=== PATIENT | female | born 1975 | race Caucasian/White ===

== ENCOUNTER 2016-07-18 10:07 | Emergency (ER) | payer OTHER ==
[~2016-07-18] VITALS: Ht 160 cm; Wt 63.5 kg
--- NOTE | 2016-07-18 10:17 | ED MVC/FALL/TRAUMA COMPLAINT ---
History of Present Illness General Chief Complaint: General Adult Stated Complaint: MULIT COMPLAINTS Source: patient Exam Limitations: no limitations Vital Signs & Intake/Output Vital Signs & Intake/Output Vital Signs Date Time Temp Pulse Resp B/P Pulse O2 O2 Flow FiO2 Ox Delivery Rate 07/18 1113 97.8 76 18 118/76 100 Room Air 07/18 1019 99.1 90 20 106/68 97 Room Air Allergies Coded Allergies: NO KNOWN ALLERGIES (05/14/12) Reconcile Medications Metronidazole (Flagyl) 500 MG TABLET 1 TAB PO TID ANTIBIOTIC, INFECTION ( Reported) Triage Nurses Notes Reviewed? yes HPI: 40 yo previously healthy F presenting with chest pain, URI Sx, Vaginal Sx. Chest pain starting yesterday afternoon, pressure-like sensation, worse in the substernal area radiating to the bilateral upper left and right chest, constant, nonpleuritic, nonexertional. Associated URI symptoms, with cough, congestion, rhinorrhea, mild sore throat for the last 2-3 days. Patient also endorses a vaginal symptoms with change in odor and vaginal itching for the last 3-4 days, evaluated at [facility] for the same yesterday, testing for chlamydia and gonorrhea sent, treated for bacterial vaginosis with Flagyl, patient has not taken first dose yet. Patient presents to ED today because she is concerned about lab values done yesterday [facility], "my CO2 was low, my globulin was high, I need to get treatment for this illness." D/C paperwork shows CO2 20 (normal 22-30), globulun 3.6 (normal 2.5-3.5), UA suggestive of infection. Denies fevers, chills, dictations, shortness of breath, abdominal pain, nausea, vomiting, diarrhea, headaches, dizziness, or focal neurologic symptoms. (ELODIA DUNN,NARDA) Past History Travel History Traveled to [place] past 21 day No Medical History Any Pertinent Medical History? see below for history Surgical History Surgical History: none Psychosocial History What is your primary language Slovak Family History Hx Contributory? No (ELODIA DUNN,NARDA) Review of Systems Review of Systems Constitutional: Reports: no symptoms. Eyes: Reports: no symptoms. Ears, Nose, Throat, Mouth: Reports: other (Congestion, Rhinorrhea). Respiratory: Reports: cough. Denies: orthopnea, short of breath, sputum production. Cardiovascular: Reports: chest pain. Denies: palpitations, peripheral edema, syncope. Gastrointestinal/Abdominal: Reports: no symptoms. Genitourinary: Reports: no symptoms. Musculoskeletal: Reports: no symptoms. Skin: Reports: no symptoms. Neurological/Psychological: Reports: no symptoms. All Other Systems: Reviewed and Negative (ELODIA DUNN,NARDA) Physical Exam Physical Exam General Appearance: well developed/nourished, no apparent distress Head: atraumatic Eyes: Bilateral: normal appearance. Ears, Nose, Throat, Mouth: moist mucous membrane, Tympanic normal Neck: normal inspection Respiratory: normal breath sounds Cardiovascular: regular rate/rhythm, normal peripheral pulses Gastrointestinal: normal bowel sounds, soft, non-tender Back: normal inspection Extremities: normal range of motion Comments: HEENT: No pharyngeal erythema or exudates, TMs normal bilaterally without injection or effusion Pulmonary: Lungs clear to auscultation bilaterally, without appreciable wheezes, rales, rhonchi. Core Measures ACS in differential dx? Yes Severe Sepsis Present: No Septic Shock Present: No (ELODIA DUNN,NARDA) Progress Differential Diagnosis: viral URI, bronchitis, pneumonia, low concern for ACS or PE Plan of Care: Orders Procedure Date/time Status EKG 07/18 1112 Active Laboratory Tests 07/18/16 1108: Troponin I Cancelled, CBC w Diff Cancelled, WBC Cancelled, RBC Cancelled, Hgb Cancelled, Hct Cancelled, MCV Cancelled, MCH Cancelled, RDW Cancelled, Plt Count Cancelled, MPV Cancelled, PUBS MCHC Cancelled Physician MDM: 40 yo previously healthy F presenting with chest pain, URI Sx, Vaginal Sx, concerns about mildly abnormal labs performed at [facility] yesterday. VSS, physical exam as above. DDx: Viral URI, bronchitis, pneumonia, low concern for ACS or PE. Patient declines lab work including troponin, stating she had lab work yesterday and does not want to be stuck again, patient is aware that this will limit our evaluation for cardiac disease and continues to decline lab work. EKG sinus rhythm, T-wave inversion in V1, unchanged from previous, nonischemic. Chest x-ray without focal consolidation airspace disease. Vaginal symptoms discussed with patient, has perscription for Flagyl she has not started taking, instructed to start taking antibiotic, instructed to follow-up on Chlamydia and gonorrhea testing sent yesterday from [facility] with her primary care doctor or [employer]. Patient offered empiric treatment for chlamydia and gonorrhea, declined. Lab values from yesterday's evaluation discussed the patient, reassured that they are nonspecific, should not be concerning, and no treatment is required. Given nonischemic EKG overall low concern for ACS based on symptoms patient discharged with return precautions , plan to follow up with PMD in the next 2-3 days. (ELODIA DUNN,NARDA) Departure Departure Disposition: HOME OR SELF CARE Condition: Stable Clinical Impression Primary Impression: URI (upper respiratory infection) Secondary Impressions: Vaginal itching Referrals: PATIENT HAS NO PRIMARY CARE DR (PCP/Family) Departure Forms: Customer Survey General Discharge Information (ELODIA DUNN,NARDA) PA/STITCH BURNISHER Co-Sign Statement Statement: ED Attending supervision documentation- [] I saw and evaluated the patient. I have also reviewed all the pertinent lab results and diagnostic results. I agree with the findings and the plan of care as documented in the PA's/STITCH BURNISHER's documentation. [X] I have reviewed the ED Record and agree with the PA's/STITCH BURNISHER's documentation. [] Additions or exceptions (if any) to the PAs/STITCH BURNISHER's note and plan are summarized below: [] (CAITY DUNN,AGUSTIN Wu)
[2016-07-18] MEDS ORDERED: FLAGYL500 MG PO (10:56)
[2016-07-18 11:13] VITALS: BP 118/76
--- NOTE | 2016-07-18 12:26 | RADIOLOGY REPORT ---
EXAMINATION: XR CHEST CLINICAL INFORMATION: Chest pressure. Presumptive diagnosis of pneumonia. COMPARISON: None TECHNIQUE: 2 views of the chest were obtained. FINDINGS: The cardiomediastinal silhouette is within normal limits in size. Lungs bilaterally are symmetrically expanded and clear. No effusion or pneumothorax is seen. Mild S-shaped thoracic scoliosis is seen. IMPRESSION: Unremarkable examination with no evidence of focal pneumonia.
== END 2016-07-18 13:13 ==
LOC: ERH 10:07
DX: J06.9 Acute upper respiratory infection, unspecified (principal); L29.2 Pruritus vulvae
CPT/HCPCS: 93005; 93010

== ENCOUNTER 2016-07-18 21:14 | Emergency (ER) | payer OTHER ==
[~2016-07-18] VITALS: Ht 160 cm; Wt 63.5 kg
[~2016-07-18 21:14] MED LIST: FLAGYL500 MG PO
--- NOTE | 2016-07-18 21:19 | ED GI/GU/ABDOMINAL COMPLAINT ---
History of Present Illness General Chief Complaint: Female Urogenital Problems Stated Complaint: " WANT AN STD SHOT THAT I TURNED DOWN EARLIER" Source: patient Exam Limitations: no limitations Vital Signs & Intake/Output Vital Signs & Intake/Output Vital Signs Date Time Temp Pulse Resp B/P Pulse O2 O2 Flow FiO2 Ox Delivery Rate 07/19 2131 99.2 74 18 119/80 98 Room Air ED Intake and Output 07/19 0000 07/18 1200 Intake Total 60 Output Total Balance 60 Intake, Oral 60 Patient 140 lb Weight Allergies Coded Allergies: NO KNOWN ALLERGIES (05/14/12) Reconcile Medications Metronidazole (Flagyl) 500 MG TABLET 1 TAB PO TID ANTIBIOTIC, INFECTION ( Reported) Triage Nurses Notes Reviewed? yes ? N Is pt currently ? No HPI: 40 yo previosuly healthy female presenting with vaginal itching and change in odor. Change in vaginal odor for the past 3-4 days associated itching and mild whitish discharge, evaluated for the same yesterday at emergency Department, diagnosed with bacterial vaginosis, discharged with Flagyl which she has not started taking, cultures for chlamydia and gonorrhea sent but emperic treatment held. Patient hydrated for URI symptoms as well as vaginal symptoms earlier in this emergency department offered empiric treatment for chylamydia/gonorrhea given ongoing concern for vaginal infection, declined due to fears about ceftriaxone shot. Patient returned to the ED this evening because she has ongoing concern for untreated infection, now would like IM ceftriaxone and azithromycin. Denies new, worsening, or concerning symptoms from ED visit this afternoon. (NARDA CLIFTON MD) Past History Travel History Traveled to [place] past 21 day No Medical History Any Pertinent Medical History? none Surgical History Surgical History: none Psychosocial History What is your primary language Cuban Family History Hx Contributory? No (NARDA CLIFTON MD) Review of Systems Review of Systems Constitutional: Reports: no symptoms. EENTM: Reports: no symptoms. Respiratory: Reports: cough. Denies: short of breath, wheezing. Cardiovascular: Reports: no symptoms. GI: Denies: abdominal pain, constipation, diarrhea, nausea, vomiting. Musculoskeletal: Reports: no symptoms. Skin: Reports: no symptoms. Neurological/Psychological: Reports: no symptoms. Hematologic/Endocrine: Reports: no symptoms. Immunologic/Allergic: Reports: no symptoms. All Other Systems: Reviewed and Negative (NARDA CLIFTON MD) Physical Exam Physical Exam General Appearance: well developed/nourished, no apparent distress, alert, awake Head: atraumatic, normal appearance Eyes: Bilateral: normal appearance. Ears, Nose, Throat, Mouth: hearing grossly normal Neck: normal inspection, supple, full range of motion Respiratory: normal breath sounds, no respiratory distress Cardiovascular: regular rate/rhythm, normal peripheral pulses Gastrointestinal: normal bowel sounds, soft, non-tender Core Measures ACS in differential dx? No Severe Sepsis Present: No Septic Shock Present: No (NARDA CLIFTON MD) Progress Differential Diagnosis: Bacterial vaginosis, Trichomonas, Chlamydia, gonorrhea Plan of Care: Current Medications Sig/Darrell Start time Last Medication Dose Stop Time Status Admin Azithromycin 1,000 MG ONCE ONE 07/18 2129 AC (Zithromax) 07/18 2130 Ceftriaxone Sodium 250 MG ONCE ONE 07/18 2129 AC (Rocephin) 07/18 2130 Physician MDM: 40 yo F presents requesting emperic treatment for GCC, which she declined earlier in the day, also examined by provider at that time. VSS, abdominal exam remains benign. Given patient extremely concerned for untreated vaginal infection, will treat empirically for chlamydia and gonorrhea at this time with IM ceftriaxone and 1 g of azithromycin. Plan to continue Flagyl prescribed at [facility] yesterday. Patient counseled to avoid sexual intercourse until sexual partners are treated. Discharged with return precautions plan to follow up with outpatient primary care provider. (NARDA CLIFTON MD) Initial ED EKG: none (NARDA CLIFTON MD) Departure Departure Disposition: HOME OR SELF CARE Condition: Stable Clinical Impression Primary Impression: Vaginal itching Referrals: [facility] Additional Instructions: Avoid sexual intercourse with your previous partners until they are also treated for chlamydia and gonorrhea. Follow up with your OBGYN in the next 2-3 days. Return to the ED for any new, worsening, or concerning symptoms. Departure Forms: Customer Survey General Discharge Information (NARDA CLIFTON MD) PA/PICKER Co-Sign Statement Statement: ED Attending supervision documentation- [] I saw and evaluated the patient. I have also reviewed all the pertinent lab results and diagnostic results. I agree with the findings and the plan of care as documented in the PA's/PICKER's documentation. [X] I have reviewed the ED Record and agree with the PA's/PICKER's documentation. [] Additions or exceptions (if any) to the PAs/PICKER's note and plan are summarized below: [] (BRANDON DUNN,YEISON)
[2016-07-18 21:32] VITALS: BP 119/80
== END 2016-07-18 21:53 ==
LOC: ERH 21:14
DX: L29.9 Pruritus, unspecified (principal)
CPT/HCPCS: 96372; J0696

== ENCOUNTER 2016-07-20 20:40 | Emergency (ER) | payer OTHER ==
[~2016-07-20] VITALS: Ht 160 cm; Wt 65.8 kg
[2016-07-20 21:06] VITALS: BP 123/78
--- NOTE | 2016-07-20 22:03 | ED GENERAL ADULT ---
History of Present Illness General Chief Complaint: General Adult Stated Complaint: "MY PILLS DONT TASTE GOOD" Source: patient, old records Exam Limitations: no limitations Vital Signs & Intake/Output Vital Signs & Intake/Output Vital Signs Date Time Temp Pulse Resp B/P Pulse O2 O2 Flow FiO2 Ox Delivery Rate 07/20 2106 98.7 82 18 123/78 100 Room Air Allergies Coded Allergies: NO KNOWN ALLERGIES (05/14/12) Reconcile Medications Metronidazole (Flagyl) 500 MG TABLET 1 TAB PO TID ANTIBIOTIC, INFECTION ( Reported) Triage Note: PT TO ED C/O "MY MEDICINE DOES NOT TASTE GOOD, I CAN'T TOLERATE IT" TOOK 1 PILL OF GENERIC FLAGYL YESTERDAY FOR BACTERIAL VAGINOSIS. "THEY GAVE ME THE NAME BRAND HERE AND IT WAS OK, I JUST CAN'T TAKE THIS" Triage Nurses Notes Reviewed? yes : No Patient currently breastfeeds: No HPI: Patient was seen at [place] emergency department a few days ago and was diagnosed with bacterial vaginosis. Patient was given a prescription for Flagyl however she did not fill it and came here for another evaluation. Patient was seen here on Wednesday and was instructed to take the prescription as it was prescribed. Patient was given a Flagyl pill while here in the emergency room. Patient states that she took the pill without any difficulty however when she got the prescription filled it was for the generic and the pills are very nasty taste in the patient states that she cannot take them. Patient denies any fevers or chills. There is no nausea or vomiting. Past History Travel History Traveled to [place] past 21 day No Medical History Any Pertinent Medical History? see below for history Psychiatric: anxiety CHIEF DEPUTY CLERK/BAILIFF/Reproductive: bacterial vaginitis Surgical History Surgical History: none Psychosocial History What is your primary language Romansh Tobacco Use: Quit >30 days ago ETOH Use: denies use Illicit Drug Use: denies illicit drug use Family History Hx Contributory? No Review of Systems Review of Systems Constitutional: Reports: no symptoms. EENTM: Reports: no symptoms. Respiratory: Reports: no symptoms. Cardiovascular: Reports: no symptoms. GI: Reports: no symptoms. Musculoskeletal: Reports: no symptoms. Neurological/Psychological: Reports: see HPI, anxiety. Immunologic/Allergic: Reports: no symptoms. Physical Exam Physical Exam General Appearance: well developed/nourished, alert, awake, anxious, mild distress Eyes: Bilateral: PERRL, EOMI. Neck: normal inspection, supple, full range of motion Respiratory: normal breath sounds, chest non-tender, no respiratory distress, lungs clear Cardiovascular: regular rate/rhythm, normal peripheral pulses Gastrointestinal: normal bowel sounds, soft, non-tender, no organomegaly Extremities: normal inspection, normal capillary refill, normal range of motion, no edema Neurologic/Psych: no motor/sensory deficits, awake, alert, oriented x 3, normal gait, normal mood/affect Core Measures ACS in differential dx? No CVA/TIA Diagnosis: No Severe Sepsis Present: No Septic Shock Present: No Progress Differential Diagnoses I considered the following diagnoses in my evaluation of the patient: [We will treat with one time dose of 2 g of Flagyl.] Plan of Care: Current Medications Sig/Darrell Start time Last Medication Dose Stop Time Status Admin Metronidazole 2,000 MG ONCE ONE 07/20 2214 UNVr (Flagyl) 07/21 2215 Initial ED EKG: none Departure Departure Disposition: HOME OR SELF CARE Condition: Stable Clinical Impression Primary Impression: Bacterial vaginosis Referrals: RAÚL WYNN DO PATIENT HAS NO PRIMARY CARE DR (PCP/Family) Additional Instructions: Follow-up with Dr. Wynn. Return for any concerns. Departure Forms: Customer Survey General Discharge Information Critical Care Note Critical Care Note Critical Care Time: non-applicable
== END 2016-07-20 22:12 ==
LOC: ERH 20:40
DX: N76.0 Acute vaginitis (principal)